=== PATIENT | female | born 1975 | race Caucasian/White ===

== ENCOUNTER 2016-04-28 15:16 | Emergency (ER) | payer MEDICAID ==
[~2016-04-28] VITALS: Ht 167.6 cm; Wt 72.3 kg
[~2016-04-28 15:16] MED LIST: ATOR40TA2 PO; ATOR80TA73 PO; BACL10TA PO; BACL20TA PO; CLIN-78 PO; FISH OIL OMEGA1 EACH PO; HYDR-3708 PO; IBP800T PO; INSU100I10 SC; INSU100I10 SQ; INSU100I13 SQ; INSU100V32 SC; INSU300I SQ; METH40TA2 PO; MTH10T PO; OMEG-103 PO; PAMI30VI8 SC; PREG300C PO; TIZAN4T PO
[2016-04-28] MEDS ORDERED: [UNRECOGNIZED DRUG - CODE] PO (15:55)
[2016-04-28] MEDS ORDERED: ACYC800T PO (16:29)
[2016-04-28] MEDS ORDERED: MAALIDOBEN PO (16:29)
[2016-04-28] MEDS ORDERED: ACYCLOVIR 800 MG PO ONE (16:30)
--- NOTE | 2016-04-28 16:45 | NUR ---
PT WAITING IN ROOM - PHARMACY WILL BE SENDING UP MEDICATION DOSE.
[2016-04-28 17:46] VITALS: BP 125/87
== END 2016-04-28 17:47 | disposition home or self-care (01) ==
LOC: ED 15:20
DX: B00.2 Herpesviral gingivostomatitis and pharyngotonsillitis (principal); E10.65 Type 1 diabetes mellitus with hyperglycemia; Z79.4 Long term (current) use of insulin
CPT/HCPCS: 99283; A9270

== ENCOUNTER 2016-08-03 16:53 | Emergency (ER) | payer MEDICAID ==
[~2016-08-03] VITALS: Ht 172.7 cm; Wt 75.6 kg
[~2016-08-03 16:53] MED LIST changes: +ACYC800T PO; +MAALIDOBEN PO; +[UNRECOGNIZED DRUG - CODE] PO
[2016-08-03] MEDS ORDERED: FENO145T20 PO (17:47)
[2016-08-03] MEDS ORDERED: AMOX1TAB12 PO (17:47)
[2016-08-03] MEDS ORDERED: INSU100I14 SQ (17:47)
[2016-08-03] MEDS ORDERED: CEPH500C PO (17:54)
[2016-08-03 18:39] VITALS: BP 97/60
== END 2016-08-03 18:40 | disposition home or self-care (01) ==
LOC: ED 16:56
DX: I88.9 Nonspecific lymphadenitis, unspecified (principal)
CPT/HCPCS: 99282; 99283